=== PATIENT | male | born 1955 | race Hispanic/Latino ===

== ENCOUNTER 2022-11-10 09:40 | Outpatient (CLI) | payer BC ==
[~2022-11-10 09:40] MED LIST: Magnevist 469MG/ML 20 ML VIAL ONE
== END 2022-11-10 09:41 | disposition home or self-care (01) ==
LOC: MRI 09:40
PROVIDERS: ATTEND Family Medicine
DX: G44.89 Other headache syndrome (principal)
CPT/HCPCS: 70553; A9579

== ENCOUNTER 2022-12-17 14:37 | Outpatient (CLI) | payer BC | END 2022-12-17 14:38 | disposition home or self-care (01) | LOC: BICRAD 14:37 | PROVIDERS: ATTEND Nurse Practitioner Family | DX: M25.562 Pain in left knee (principal); M17.12 Unilateral primary osteoarthritis, left knee ==